=== PATIENT | male | born 1960 | race Caucasian/White ===

== ENCOUNTER 2020-08-06 18:24 | Outpatient (REF) | payer MEDICARE, MEDICAID, SELFPAY ==
[2020-08-06 21:42] LABS: COMMENT (LAB VIEW ONLY) 71.11 mg/dL
[2020-08-06 21:46] LABS: ALT 25 U/L (16-63); AST 10 U/L (15-37); Albumin 3.6 g/dL (3.4-5.0); Alkaline Phosphatase 114 U/L (46-116); Anion Gap 7.5 mmol/L (3-11); BUN 16 mg/dL (7-18); Bilirubin, Total 0.2 mg/dL (0.2-1.0); CO2 28.5 mmol/L (21.0-32.0); CREATININE 1.7 mg/dL (0.70-1.30); Chloride 100 mmol/L (98-107); Cholesterol 245 mg/dL (<200); Estimated GFR 41.46 (mL/min/1.73m2); Glucose 484 mg/dL (74-106); HDL Cholesterol 39 mg/dL (40-60); Potassium 4.8 mmol/L (3.5-5.1); Sodium 136 mmol/L (136-145); Total Protein 7.4 g/dL (6.4-8.2); Triglyceride 469 mg/dL (<150)
[2020-08-06 21:51] LABS: Microalb ug/mg Crea 121.1 ug/mg Cr
[2020-08-06 22:25] LABS: LDL CHOLESTEROL 139 mg/dL (<100)
== END 2020-08-06 18:25 | disposition home or self-care (01) ==
LOC: NCHCN 18:24
PROVIDERS: Visit Provider Nurse Practitioner Family
DX: E11.65 Type 2 diabetes mellitus with hyperglycemia (principal); E78.5 Hyperlipidemia, unspecified
CPT/HCPCS: 80053; 80061; 83721; 82043; 82570

== ENCOUNTER 2021-02-03 16:28 | Outpatient (REF) | payer MEDICARE, MEDICAID, SELFPAY ==
[2021-02-03 22:12] LABS: Anion Gap 7.2 mmol/L (3-11); BUN 23 mg/dL (7-18); CO2 29.8 mmol/L (21.0-32.0); CREATININE 1.5 mg/dL (0.70-1.30); Calcium 9.7 mg/dL (8.5-10.1); Chloride 102 mmol/L (98-107); Estimated GFR 47.74 (mL/min/1.73m2); Glucose 220 mg/dL (74-106); Potassium 4.8 mmol/L (3.5-5.1); Sodium 139 mmol/L (136-145)
== END 2021-02-03 16:29 | disposition home or self-care (01) ==
LOC: NCHCN 16:28
PROVIDERS: Visit Provider Family Medicine
DX: E11.29 Type 2 diabetes mellitus with other diabetic kidney complication (principal); N17.9 Acute kidney failure, unspecified
CPT/HCPCS: 80048

== ENCOUNTER 2021-07-01 18:31 | Outpatient (REF) | payer MEDICARE, SELFPAY ==
[2021-07-01 21:32] LABS: COMMENT (LAB VIEW ONLY) 63.94 mg/dL
[2021-07-01 21:34] LABS: Microalb ug/mg Crea 134.5 ug/mg Cr
== END 2021-07-01 18:32 | disposition home or self-care (01) ==
LOC: NCHCN 18:31
PROVIDERS: Visit Provider Nurse Practitioner Family
DX: E11.29 Type 2 diabetes mellitus with other diabetic kidney complication (principal)
CPT/HCPCS: 82043; 82570

== ENCOUNTER 2022-03-09 14:02 | Outpatient (REF) | payer MEDICARE, SELFPAY ==
[2022-03-09 16:13] LABS: ALT 25 U/L (16-63); AST 18 U/L (15-37); Albumin 3.9 g/dL (3.4-5.0); Alkaline Phosphatase 74 U/L (46-116); BUN 28 mg/dL (7-18); Bilirubin, Total 0.2 mg/dL (0.2-1.0); CREATININE 1.4 mg/dL (0.70-1.30); Calcium 9.3 mg/dL (8.5-10.1); Calculated LDL 153 mg/dL (<100); Chloride 101 mmol/L (98-107); Cholesterol 254 mg/dL (<200); Estimated GFR 57.18 (mL/min/1.73m2); Glucose 295 mg/dL (74-106); HDL Cholesterol 54 mg/dL (40-60); Potassium 4.9 mmol/L (3.5-5.1); Sodium 137 mmol/L (136-145); Triglyceride 238 mg/dL (<150)
== END 2022-03-09 14:03 | disposition home or self-care (01) ==
LOC: NCHCN 14:02
PROVIDERS: Visit Provider Nurse Practitioner Family
DX: E11.29 Type 2 diabetes mellitus with other diabetic kidney complication (principal); I10 Essential (primary) hypertension; E78.5 Hyperlipidemia, unspecified
CPT/HCPCS: 80053; 80061

== ENCOUNTER 2022-06-07 15:32 | Outpatient (REF) | payer MEDICARE, SELFPAY ==
[2022-06-07 22:40] LABS: COMMENT (LAB VIEW ONLY) 45.61 mg/dL
[2022-06-07 22:53] LABS: Microalb ug/mg Crea 874.8 ug/mg Cr
== END 2022-06-07 15:33 | disposition home or self-care (01) ==
LOC: NCHCN 15:32
PROVIDERS: Visit Provider Nurse Practitioner Family
DX: E11.29 Type 2 diabetes mellitus with other diabetic kidney complication (principal)
CPT/HCPCS: 82043; 82570

== ENCOUNTER 2022-09-02 11:59 | Outpatient (REF) | payer MEDICARE, SELFPAY ==
[2022-09-02 14:33] LABS: HCT 34.9 % (40.0-50.0); HGB 11.2 g/dL (13.5-17.5); MCHC 32.1 % (32.0-36.0); MCV 94 fL (80-95); Platelet Count 589 10^3/uL (130-400); RBC 3.73 10^6/uL (4.36-5.78); RDW 13.3 % (11.8-14.1); RDW-SD 45.6 fL; WBC 15.54 10^3/uL (4.4-10.8)
[2022-09-02 14:48] LABS: ALT 16 U/L (16-63); AST 18 U/L (15-37); Albumin 3.5 g/dL (3.4-5.0); Alkaline Phosphatase 148 U/L (46-116); Anion Gap 7.6 mmol/L (3-11); BUN 19 mg/dL (7-18); Bilirubin, Total 0.3 mg/dL (0.2-1.0); CO2 27.4 mmol/L (21.0-32.0); CREATININE 1.1 mg/dL (0.70-1.30); Calcium 9.2 mg/dL (8.5-10.1); Chloride 105 mmol/L (98-107); Estimated GFR 76.37 (mL/min/1.73m2); Glucose 116 mg/dL (74-106); Potassium 4.6 mmol/L (3.5-5.1); Sodium 140 mmol/L (136-145); Total Protein 7.6 g/dL (6.4-8.2)
== END 2022-09-02 12:00 | disposition home or self-care (01) ==
LOC: NCHCN 11:59
PROVIDERS: Visit Provider Nurse Practitioner Family
DX: E11.29 Type 2 diabetes mellitus with other diabetic kidney complication (principal); I10 Essential (primary) hypertension
CPT/HCPCS: 80053; 85027

== ENCOUNTER 2022-09-27 15:09 | Outpatient (REF) | payer MEDICARE, SELFPAY ==
[2022-09-27 16:08] LABS: Anion Gap 10.1 mmol/L (3-11); BUN 22 mg/dL (7-18); CO2 25.9 mmol/L (21.0-32.0); CREATININE 1.4 mg/dL (0.70-1.30); Calcium 9.3 mg/dL (8.5-10.1); Calculated LDL 60 mg/dL (<100); Chloride 104 mmol/L (98-107); Cholesterol 135 mg/dL (<200); Estimated GFR 56.83 (mL/min/1.73m2); Glucose 101 mg/dL (74-106); HDL Cholesterol 48 mg/dL (40-60); Potassium 4.9 mmol/L (3.5-5.1); Sodium 140 mmol/L (136-145); Triglyceride 138 mg/dL (<150)
== END 2022-09-27 15:10 | disposition home or self-care (01) ==
LOC: NCHCN 15:09
PROVIDERS: Visit Provider Nurse Practitioner Family
DX: E11.29 Type 2 diabetes mellitus with other diabetic kidney complication (principal); E78.5 Hyperlipidemia, unspecified; I10 Essential (primary) hypertension
CPT/HCPCS: 80048; 80061

== ENCOUNTER 2023-05-09 18:20 | Outpatient (REF) | payer MEDICARE, SELFPAY ==
[2023-05-09 14:53] LABS: ALT 31 U/L (16-63); AST 25 U/L (15-37); Alkaline Phosphatase 124 U/L (46-116); BUN 19 mg/dL (7-18); Bilirubin, Total 0.5 mg/dL (0.2-1.0); CREATININE 1.3 mg/dL (0.70-1.30); Calcium 10.1 mg/dL (8.5-10.1); Calculated LDL 34 mg/dL (<100); Chloride 99 mmol/L (98-107); Cholesterol 135 mg/dL (<200); Estimated GFR 62.11 (mL/min/1.73m2); Glucose 199 mg/dL (74-106); HDL Cholesterol 46 mg/dL (40-60); Potassium 3.7 mmol/L (3.5-5.1); Sodium 137 mmol/L (136-145); Total Protein 8.4 g/dL (6.4-8.2); Triglyceride 279 mg/dL (<150)
[2023-05-09 15:03] LABS: Hemoglobin A1C 6.8 % (<5.7)
[2023-05-09 16:06] LABS: COMMENT (LAB VIEW ONLY) 121.25 mg/dL
[2023-05-09 16:41] LABS: Microalb ug/mg Crea 644.6 ug/mg Cr
== END 2023-05-09 18:21 | disposition home or self-care (01) ==
LOC: NCHCN 18:20
PROVIDERS: Visit Provider Nurse Practitioner Family
DX: E78.5 Hyperlipidemia, unspecified (principal); I10 Essential (primary) hypertension; E11.9 Type 2 diabetes mellitus without complications; N17.9 Acute kidney failure, unspecified
CPT/HCPCS: 80053; 80061; 82043; 82570; 83036

== ENCOUNTER 2024-05-28 14:54 | Outpatient (REF) | payer MEDICARE, SELFPAY ==
[2024-05-28 21:41] LABS: HCT 51.4 % (40.0-50.0); HGB 16.8 g/dL (13.5-17.5); MCH 30.7 pg (27.0-33.0); MCHC 32.7 % (32.0-36.0); MCV 94 fL (80-95); MPV 10.5 fL (8.0-11.0); Platelet Count 398 10^3/uL (130-400); RBC 5.47 10^6/uL (4.36-5.78); RDW 14.2 % (11.8-14.1); RDW-SD 49.7 fL; WBC 13.34 10^3/uL (4.4-10.8)
[2024-05-28 22:29] LABS: COMMENT (LAB VIEW ONLY) 57.19 mg/dL
[2024-05-28 22:54] LABS: Hemoglobin A1C 7.5 % (<5.7)
[2024-05-28 22:57] LABS: ALT 20 U/L (16-63); AST 21 U/L (15-37); Albumin 3.8 g/dL (3.4-5.0); Alkaline Phosphatase 134 U/L (46-116); Anion Gap 10.4 mmol/L (3-11); BUN 16 mg/dL (7-18); Bilirubin, Total 0.2 mg/dL (0.2-1.0); CO2 26.6 mmol/L (21.0-32.0); CREATININE 1.2 mg/dL (0.70-1.30); Calcium 9.4 mg/dL (8.5-10.1); Calculated LDL 142 mg/dL (<100); Chloride 105 mmol/L (98-107); Cholesterol 238 mg/dL (<200); Estimated GFR 67.95 (mL/min/1.73m2); Glucose 209 mg/dL (74-106); HDL Cholesterol 50 mg/dL (>or=40); Magnesium 2.1 mg/dL; Potassium 4.8 mmol/L (3.5-5.1); Sodium 142 mmol/L (136-145); Total Protein 8.4 g/dL (6.4-8.2); Triglyceride 231 mg/dL (<150); Vitamin B12 273 pg/mL (193-986)
[2024-05-28 23:03] LABS: Microalb ug/mg Crea 1555.2 ug/mg Cr
== END 2024-05-28 14:55 | disposition home or self-care (01) ==
LOC: NCHCN 14:54
PROVIDERS: PCP Nurse Practitioner Family; Visit Provider Nurse Practitioner Family
DX: E11.9 Type 2 diabetes mellitus without complications (principal); E78.5 Hyperlipidemia, unspecified; Z51.81 Encounter for therapeutic drug level monitoring
CPT/HCPCS: 80053; 80061; 85027; 82043; 82570; 82607; 83036; 83735